=== PATIENT | female | born 1960 | race Caucasian/White ===

== ENCOUNTER 2016-09-07 13:24 | Emergency (ER) | payer OTHER ==
[2016-09-07 13:43] VITALS: BP 130/90
--- NOTE | 2016-09-07 13:53 | UC ---
Hand/Wrist HPI - HPI Summary HPI Summary: complaint of pain and swelling in 4th right finger caught her hand in a mixer approx 4-5 weeks ago over the weekend the pain and swelling has increased not taking any medications for pain at this time denies fever - History Of Current Complaint Chief Complaint: UCUpperExtremity Stated Complaint: FINGER INJURY Time Seen by Provider: 09/07/16 13:37 Hx Obtained From: Patient Hx Last Menstrual Period: NA - Allergies/Home Medications Allergies/Adverse Reactions: Allergies Allergy/AdvReac Type Severity Reaction Status Date / Time Amoxicillin [From Amoxil] Allergy Unknown Unknown Verified 09/07/16 13:43 Reaction Details Meperidine Allergy Unknown Unknown Verified 09/07/16 13:43 Reaction Details Morphine Allergy Unknown Unknown Verified 09/07/16 13:43 Reaction Details PMH/Surg Hx/FS Hx/Imm Hx Previously Healthy: Yes Cardiovascular History Of: Reports: Hypertension Cancer History Of: Denies: Breast Cancer - Surgical History Surgical History: None - Family History Known Family History: Negative: Cardiac Disease, Hypertension, Diabetes - Social History Occupation: Employed Full-time Lives: With Family Alcohol Use: Daily Alcohol Amount: WINE Substance Use Type: None Smoking Status (MU): Never Smoked Tobacco Review of Systems Constitutional: Negative Skin: Other Eyes: Negative ENT: Negative Respiratory: Negative Cardiovascular: Negative Gastrointestinal: Negative Genitourinary: Negative Motor: Negative Neurovascular: Negative Musculoskeletal: Negative Neurological: Negative Psychological: Negative All Other Systems Reviewed And Are Negative: Yes Physical Exam Triage Information Reviewed: Yes Appearance: No Pain Distress, Well-Nourished Vital Signs: Initial Vital Signs Temp 98.4 F 09/07/16 13:38 Pulse 100 09/07/16 13:38 Resp 16 09/07/16 13:38 BP 130/90 09/07/16 13:38 Pulse Ox 99 09/07/16 13:38 Vital Signs Reviewed: Yes Eyes: Positive: Conjunctiva Clear ENT: Positive: Pharynx normal, TMs normal. Negative: Nasal congestion Neck: Positive: No Lymphadenopathy Respiratory: Positive: Lungs clear, Normal breath sounds, No respiratory distress Cardiovascular: Positive: RRR, No Murmur Abdomen Description: Positive: Nontender, Soft Bowel Sounds: Positive: Present Musculoskeletal: Positive: Other: - RUE- tenderness , erythema and edema around the PIP joint, able to fully flex and extend finger hand- no tenderness in metacarpals Neurological Exam: Normal Psychological Exam: Normal Skin Exam: Normal Hand/Wrist Course/Dx - Differential Dx/Diagnosis Differential Diagnosis/HQI/PQRI: Cellulitis, Contusion, Fracture, Sprain Provider Diagnoses: celliulitis- right 4th finger Discharge - Discharge Plan Condition: Stable Disposition: HOME Prescriptions: Sulfamethox/Trimethoprim DS* [Bactrim DS 800/160 TAB*] 1 tab PO BID #14 tab Patient Education Materials: Cellulitis (ED) Referrals: Jb Ko MD [Primary Care Provider] - Carla Adams MD [Medical Doctor] - Additional Instructions: Start antibiotic as directed Increase fluids and rest Take acetaminophen or ibuprofen for fever or pain Please review your discharge instructions. If your symptoms do not improve please call your primary care provider or return to urgent care
--- NOTE | 2016-09-07 14:08 | RAD ---
HISTORY: Trauma, pain fourth digit of right hand COMPARISONS: None VIEWS: 3, Frontal, lateral, and oblique views of the fourth digit of the right hand FINDINGS: BONE DENSITY: Normal. BONES: There is no displaced fracture. JOINTS: There is no arthropathy. ALIGNMENT: There is no dislocation. SOFT TISSUES: Unremarkable. OTHER FINDINGS: None. IMPRESSION: NO ACUTE OSSEOUS INJURY. IF SYMPTOMS PERSIST, RECOMMEND REPEAT IMAGING.
== END 2016-09-07 14:35 | disposition home or self-care (01) ==
LOC: UCEAST 13:24
DX: L03.011 Cellulitis of right finger (principal); Z88.1 Allergy status to other antibiotic agents; Z88.5 Allergy status to narcotic agent
CPT/HCPCS: 73140; 99212; G0463